=== PATIENT | male | born 2005 | race Caucasian/White ===

== ENCOUNTER 2023-02-24 13:55 | Emergency (ER) | payer OTHER | END 2023-02-24 16:30 | disposition home or self-care (01) | LOC: JD.ED 13:55 | DX: R06.02 Shortness of breath (principal); F17.210 Nicotine dependence, cigarettes, uncomplicated; Z91.018 Allergy to other foods; Z91.011 Allergy to milk products; Z91.012 Allergy to eggs | CPT/HCPCS: 93005; 93010; 99283; 99284 ==